=== PATIENT | female | born 1985 | race Caucasian/White ===

== ENCOUNTER 2016-10-23 13:25 | Emergency (ER) | payer BC ==
[~2016-10-23 13:25] MED LIST: ALBUTEROL INH; IBUPROFEN600 MG PO; NORCO 5-325 TA1 EACH PO
[2016-10-23 15:26] LABS: HEMOGLOBIN 13.2 gm/dl (12.3-15.3); RED BLOOD COUNT 4.2 M/UL (4.00-5.10); WHITE BLOOD COUNT 9.5 K/UL (4.5-11.0)
[2016-10-23 15:44] LABS: BUN/CREATININE RATIO 18 (0-10)
== END 2016-10-23 21:35 | disposition home or self-care (01) ==
LOC: ER1 13:25
PROVIDERS: Emergency Medicine
DX: O23.41 Unspecified infection of urinary tract in pregnancy, first trimester (principal); O21.9 Vomiting of pregnancy, unspecified; Z3A.09 9 weeks gestation of pregnancy; Z87.891 Personal history of nicotine dependence
CPT/HCPCS: 36415; 76705; 76817; 80053; 81001; 83690; 84702; 85025; 87086; 87210; 96374; 96375; 99284; J1200; J2765; J7040